=== PATIENT | female | born 1995 | race Caucasian/White ===

== ENCOUNTER 2022-08-19 02:55 | Emergency (ER) | payer OTHER, SELFPAY ==
[2022-08-19 02:58] VITALS: BP 103/79; PULSE 74; RESP 18; TEMP 36.8; O2SAT 99; BMI 34.1
--- NOTE | 2022-08-19 03:22 | ED_ITS ---
HPI - Dental/Oral General Chief complaint: Dental/Oral Stated complaint: DENTAL PAIN Time Seen by Provider: 08/19/22 03:19 Source: patient Mode of arrival: walk-in Limitations: no limitations History of Present Illness HPI Narrative: states the filling in her tooth fell out and now her nerve is exposed and painful. No swelling. It fell out tonight. Throbbing pain not relieved with oragel or motrin Related Data Home Medications Medication Instructions Recorded Confirmed amoxicillin 875 mg tablet mg 08/19/22 Allergies Allergy/AdvReac Type Severity Reaction Status Date / Time No Known Drug Allergies Allergy Verified 08/19/22 03:04 Review of Systems ROS Status of ROS 10 or more systems reviewed and unremarkable except as noted in history and below [facility] Social History Smoking status: Current every day smoker Exam Constitutional Vital Signs - 24 hr 08/19/22 02:58 Temperature 98.2 F Pulse Rate [Monitor] 74 Respiratory Rate 18 Blood Pressure [Right Arm] 103/79 Pulse Oximetry 99 Oxygen Delivery Method Room Air Common normals: no apparent distress HENMT Common normals: normocephalic Other: dental caries left upper premolar Eye Common normals: EOMs intact bilaterally and conjunctivae normal Respiratory Common normals: normal respiratory effort, no retractions and no use of accessory muscles Cardio Common normals: regular rate Extremity Common normals: normal to inspection, full ROM and no joint enlargement Neuro Common normals: oriented x3, CN's II-XII intact bilaterally, moves all extremities and no focal motor deficits Psych Appearance: grossly normal Course Vital Signs Vital signs: Vital Signs Temperature 98.2 F 08/19/22 02:58 Pulse Rate 74 08/19/22 02:58 Respiratory Rate 18 08/19/22 02:58 Blood Pressure 103/79 08/19/22 02:58 Pulse Oximetry 99 08/19/22 02:58 Oxygen Delivery Method Room Air 08/19/22 02:58 Temperature 98.2 F 08/19/22 02:58 Pulse Rate 74 08/19/22 02:58 Respiratory Rate 18 08/19/22 02:58 Blood Pressure 103/79 08/19/22 02:58 Pulse Oximetry 99 08/19/22 02:58 Oxygen Delivery Method Room Air 08/19/22 02:58 MDM - Dental/Oral MDM Narrative Medical decision making narrative: presents with acute dental pain after filling fell out. Inspection without any evidence of infection. patient give a couple of [place] tonight for her pain and is advised to follow up with her dentist Discharge Plan Discharge Chief Complaint: Dental/Oral Clinical Impression: Dentalgia Prescriptions / Home Meds: No Action amoxicillin 875 mg tablet Instructions: Toothache (ED) Stand Alone Forms: Portal Instructions Follow Up Appointments: follow up with your dentist in the next couple of days
[2022-08-19] MEDS: HYDROCODONE/ACETAMINOPHEN 5-325 MG TABLET 2 TAB PO (03:57)
== END 2022-08-19 04:07 | disposition home or self-care (01) ==
LOC: ER 03:27
PROVIDERS: Emergency Provider Internal Medicine
DX: K08.89 Other specified disorders of teeth and supporting structures (principal); F17.210 Nicotine dependence, cigarettes, uncomplicated
CPT/HCPCS: 99283

== ENCOUNTER 2022-09-02 21:36 | Emergency (ER) | payer OTHER, SELFPAY ==
[2022-09-02 21:40] VITALS: BP 127/68; PULSE 88; RESP 18; TEMP 37.1; O2SAT 97; BMI 35.1
== END 2022-09-02 23:00 | disposition left against medical advice (07) ==
LOC: ER 21:52
PROVIDERS: Emergency Provider Emergency Medicine
DX: Z53.21 Procedure and treatment not carried out due to patient leaving prior to being seen by health care provider (principal)